=== PATIENT | male | born 1950 | race Caucasian/White ===

== ENCOUNTER 2019-12-08 13:57 | Day surgery (SDC) | payer MEDICARE, OTHER ==
[~2019-12-08] VITALS: Ht 193 cm; Wt 137.6 kg
[~2019-12-08 13:57] MED LIST: ASPIRIN 32325 MG/TAB PO; KERLONE10 MG PO
[2019-12-08 14:26] VITALS: BP 145/87; PULSE 95; TEMP 97.4
[2019-12-08] MEDS ORDERED: FERROUSAL325 MG PO (14:30)
[2019-12-08 15:50] VITALS: BP 135/88; PULSE 84
--- NOTE | 2019-12-08 15:50 | NUR ---
Patient returns to bay 5 per cart and assisted to recliner with two person assist. IV fluids infusing and site is free of redness. Denies pain or nausea. Temp 98.3 and room air sats 96%. Spouse in room and call light in reach.
[2019-12-08 16:01] VITALS: TEMP 98.3
[2019-12-08 16:05] VITALS: BP 122/95; PULSE 83
--- NOTE | 2019-12-08 16:05 | NUR ---
Drinking water and eating muffins. Continues to deny pain or nausea.
[2019-12-08 16:20] VITALS: BP 141/98; PULSE 82
--- NOTE | 2019-12-08 16:20 | NUR ---
Tolerated muffins and water. Denies pain or nausea.
--- NOTE | 2019-12-08 16:23 | NUR ---
Dr. Leavitt here to talk with the patient and spouse. All questions answered.
--- NOTE | 2019-12-08 16:35 | NUR ---
IV discontinued and patient dresses self. Dismissal instructions given and patient and spouse both verbalize understanding of these.
--- NOTE | 2019-12-08 16:51 | NUR ---
Patient dismissed to home per private vehicle driven by spouse and taken to the front door per wheelchair and assisted into vehicle with instructions in hand.
== END 2019-12-08 16:51 | disposition home or self-care (01) ==
LOC: SDCO 13:57
DX: D12.2 Benign neoplasm of ascending colon (principal); K57.30 Diverticulosis of large intestine without perforation or abscess without bleeding; K64.1 Second degree hemorrhoids; K21.9 Gastro-esophageal reflux disease without esophagitis; D50.9 Iron deficiency anemia, unspecified
CPT/HCPCS: J2250; J3010; J7030

== ENCOUNTER 2021-07-10 16:59 | Inpatient (IN) | payer MEDICARE, OTHER ==
[~2021-07-10] VITALS: Ht 193 cm; Wt 137.0 kg
[~2021-07-10 16:59] MED LIST changes: +FERROUSAL325 MG PO
[2021-07-10] MEDS ORDERED: VITAMINC1000TA PO (17:22)
[2021-07-10] MEDS ORDERED: VITAMIN D PO (17:22)
[2021-07-10] MEDS ORDERED: VITAMIN B COMPL1 SGL PO (17:23)
[2021-07-10] MEDS ORDERED: ASPIRIN 81M81 MG/TA2 PO (17:23)
[2021-07-10] MEDS ORDERED: PROBIOTIC ACID1 EAC3 PO (17:24)
[2021-07-10 18:37] LABS: BASO % 0.5 % (0.0-2.0); EOS # 0.4 (0.0-0.7); EOS % 4.6 % (0-4.0); GRAN # 4.8 (1.4-6.5); GRAN % 59.5 % (42.2-75.2); HEMATOCRIT 39.1 % (42.0-52.0); HEMOGLOBIN 12.5 g/dl (13.5-18.0); LYMPH # 2.1 (1.2-3.4); LYMPH % 26.2 % (20.0-51.0); MEAN CELL VOLUME 91 fl (80.0-100.0); MEAN CORPUSCULAR HEMOGLOBIN 29 pg (27.0-31.0); MEAN CORPUSCULAR HGB CONC 32 g/dl (33.0-37.0); MEAN PLATELET VOLUME 10.6 fl (7.4-10.4); MONO # 0.7 (0.1-0.6); MONO % 8.8 % (1.7-9.3); PLATELET COUNT 190 K/mm3 (130-400); RED BLOOD COUNT 4.31 M/mm3 (4.20-5.60); REDCELL DISTRIBUTION WIDTH-CV 13.3 % (11.5-14.5)
[2021-07-10 18:44] LABS: BILIRUBIN,TOTAL 0.3 mg/dL (0.0-1.0); CALCIUM 7.2 mg/dL (8.4-10.2); CREATININE, serum 1.21 (0.66-1.25); MAGNESIUM 1.6 mg/dL (1.6-2.3); POTASSIUM 3.3 mmol/L (3.4-5.0); TOTAL PROTEIN 5.9 gm/dL (6.4-8.2)
--- NOTE | 2021-07-10 19:00 | NUR ---
Pt arrived to medical unit room 317 as DA from 's office around 1700. Oriented pt and to room. Admission assessments and med rec updated. 20 gauge IV started to right AC and heparin gtt initiated at 23 ml/hr following initial lab draws. Next hep XA due at 0100. Tele monitor placed on pt. Pt refusing hospital gown at this time, gown left in room. Denies further needs at this time. Call light in reach.
[2021-07-10 19:42] VITALS: BP 99/69; PULSE 82; TEMP 98.1
[2021-07-10 19:42] LABS: PARTIAL THROMBOPLASTIN TIME 31.4 SECONDS (26.0-37.0)
[2021-07-11] VITALS: BP 115/84; PULSE 86; TEMP 98.9
--- NOTE | 2021-07-11 02:08 | NUR ---
HEP GTT STOPPED AT 0200 PER ORDER AND THIS NURSE WILL COMMENCE AT 0300 AND THEN DECREASE RATE BY 250UNITS/HR.
[2021-07-11 03:14] VITALS: BP 124/77; PULSE 100; TEMP 97.9
--- NOTE | 2021-07-11 03:22 | NUR ---
HEP GTT INFUSING AT 2050 UNITS/HR. NEXT HEPXA DRAW AT 0900 HOURS 07/11.
--- NOTE | 2021-07-11 08:33 | NUR ---
Patient sitting up in chair watching television upon entering the room. Fluids running as ordered. Scheduled medications given. Shift assessment preformed. Patient continues to be in AFIB with heart rate in the 110's. VSS. Patient NPO for possible Cardioversion or PK this a.m. Patient denies any pain, discomfort, SOA, or further needs at this time. Call light in reach. Patient A&Ox4.
[2021-07-11 08:38] VITALS: BP 120/70; PULSE 96; TEMP 98
[2021-07-11 09:38] LABS: BASO # 0.1 (0.0-0.2); BASO % 0.8 % (0.0-2.0); EOS # 0.5 (0.0-0.7); EOS % 5.7 % (0-4.0); GRAN # 4.2 (1.4-6.5); GRAN % 53.5 % (42.2-75.2); HEMATOCRIT 47.2 % (42.0-52.0); LYMPH # 2.5 (1.2-3.4); LYMPH % 31.8 % (20.0-51.0); MEAN CELL VOLUME 87 fl (80.0-100.0); MEAN CORPUSCULAR HEMOGLOBIN 28 pg (27.0-31.0); MEAN CORPUSCULAR HGB CONC 33 g/dl (33.0-37.0); MEAN PLATELET VOLUME 10.4 fl (7.4-10.4); MONO # 0.6 (0.1-0.6); MONO % 7.7 % (1.7-9.3); PLATELET COUNT 221 K/mm3 (130-400); RED BLOOD COUNT 5.43 M/mm3 (4.20-5.60); REDCELL DISTRIBUTION WIDTH-CV 13.4 % (11.5-14.5)
[2021-07-11 09:39] LABS: HEMOGLOBIN 15.4 g/dl (13.5-18.0)
[2021-07-11 09:53] LABS: CALCIUM 8.7 mg/dL (8.4-10.2); CREATININE, serum 1.4 (0.66-1.25); MAGNESIUM 2.2 mg/dL (1.6-2.3); POTASSIUM 4.5 mmol/L (3.4-5.0)
--- NOTE | 2021-07-11 10:21 | NUR ---
Heparin gtt placed on hold for HepXA level of 1.05.
--- NOTE | 2021-07-11 10:25 | NUR ---
breaker table worker met with patient to discuss discharge plan. 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 Patient reports to being fully independent with his activities of daily living and does not utilize any medical equipment. PCP is Dr. Nixon and uses [facility] in [place] with no difficulty affording medications. Patient reports he does have a DPOA-HC established and that is Fernando is his agent. 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 *Discharge plan: Home with *
[2021-07-11 10:48] LABS: INR 1.2 (0.8-3.0); PROTHROMBIN TIME 12.9 SECONDS (9.7-12.8)
--- NOTE | 2021-07-11 12:29 | NUR ---
First visit from the medical advisor. prayed with patient. No other needs right now.
[2021-07-11 13:00] VITALS: BP 116/79; PULSE 90; TEMP 98.5
[2021-07-11 16:49] VITALS: BP 125/93; PULSE 65
--- NOTE | 2021-07-11 17:13 | NUR ---
Patient transferred back to floor post cardioversion. BP machine in use for post ops. VSS. Patient A&O. Denies any chest pain. Dinner ordered. Patient denies any further pain, discomfort, SOA, or further needs at this time. Call light in reach.
[2021-07-11 19:48] VITALS: BP 136/90; PULSE 73; TEMP 98.2
--- NOTE | 2021-07-11 22:22 | NUR ---
PT HEP GTT STOPPED AT 2100 THIS NIGHT, AMIADARONE AND ELIQUIS ADMINISTERED ORDERED. THIS NURSE REVIEWED S/S TO REPORT, PT VERBALIZES UNDERSTANDING. ALL QUESTIONS/CONCERNS ANSWERED. PT EXPRESSES NO ADDITIONAL NEEDS. CALL LIGHT WITHIN REACH.
[2021-07-12 00:01] VITALS: BP 171/95; PULSE 76; TEMP 97.9
[2021-07-12 04:01] VITALS: BP 120/73; PULSE 78; TEMP 98.2
--- NOTE | 2021-07-12 05:38 | NUR ---
PT HAD UNEVENTFUL NIGHT, PT DENIES N,V,D,SOA, PALPITATIONS, PT STATES " I FEEL MUCH BETTER". ALL NEEDS MET. PT EXPRESSES NO ADDITIONAL NEEDS. CALL LIGHT WITHIN REACH.
[2021-07-12 06:53] LABS: HEMATOCRIT 42.9 % (42.0-52.0); MEAN CELL VOLUME 89 fl (80.0-100.0); MEAN CORPUSCULAR HEMOGLOBIN 29 pg (27.0-31.0); MEAN CORPUSCULAR HGB CONC 33 g/dl (33.0-37.0); MEAN PLATELET VOLUME 10.8 fl (7.4-10.4); PLATELET COUNT 203 K/mm3 (130-400); RED BLOOD COUNT 4.85 M/mm3 (4.20-5.60); REDCELL DISTRIBUTION WIDTH-CV 13.2 % (11.5-14.5)
[2021-07-12 07:22] LABS: CALCIUM 8.8 mg/dL (8.4-10.2); CREATININE, serum 1.29 (0.66-1.25); POTASSIUM 4.2 mmol/L (3.4-5.0)
[2021-07-12 07:35] VITALS: BP 136/86; PULSE 71; TEMP 98
--- NOTE | 2021-07-12 09:00 | NUR ---
Shift assessment complete. Pt sitting up in recliner, A&Ox4. Heart RRR. Lungs CTA. Denies pain, SOA, dizziness. No needs at this time per pt. Continuing to monitor.
[2021-07-12] MEDS ORDERED: ELIQUIS 5MG PO (09:08)
[2021-07-12] MEDS ORDERED: CORDARONE200 MG/TAB PO (09:09)
[2021-07-12] MEDS ORDERED: PROTONIX 40MG T40 MG PO (09:12)
--- NOTE | 2021-07-12 10:44 | NUR ---
Discharge instructions discussed w/pt and and all questions answered. IVs to right AC and right forearm removed w/tips intact. Pt escorted out w/all belongings, accompanied by .
== END 2021-07-12 10:45 | disposition home or self-care (01) | DRG 310 ==
LOC: MEDICAL 16:59
PROVIDERS: Nurse Practitioner; Physician Assistant; Student in an Organized Health Care Education/Training Program; ADMIT Family Medicine
PROC: 5A2204Z Restoration of Cardiac Rhythm, Single (ICD-10-PCS; principal; 2021-07-11)
DX: I48.91 Unspecified atrial fibrillation (principal); E87.6 Hypokalemia; E83.42 Hypomagnesemia; I12.9 Hypertensive chronic kidney disease with stage 1 through stage 4 chronic kidney disease, or unspecified chronic kidney disease; N18.31 Chronic kidney disease, stage 3a; D50.0 Iron deficiency anemia secondary to blood loss (chronic)
CPT/HCPCS: 99233-AI; 99239; G0378; J1644; J2704; J3475; J7030